=== PATIENT | male | born 1975 | race Caucasian/White ===

== ENCOUNTER 2018-08-16 18:33 | Emergency (ER) | payer SELFPAY ==
--- NOTE | 2018-08-16 19:01 | ERPHSYRPT ---
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 Pt states, that the area on his right tigh is getting numb, and then it can get very painful. There is no change in leg movement, and the condition comes and goes. Method of Injury: unknown Quality: intermittent Severity of Pain-Max: mild Severity of Pain-Current: mild Lower Extremities Pain: hip: right Modifying Factors: Improves With: nothing Associated Symptoms: none Allergies/Adverse Reactions: BEE STING Allergy (Uncoded 05/08/15 01:32) Home Medications: No Reportable Medications [No Reported Medications] 05/08/15 [History] Hx Tetanus, Diphtheria Vaccination/Date Given: Yes Hx Influenza Vaccination/Date Given: No Hx Pneumococcal Vaccination/Date Given: No - Review of Systems Constitutional: No Fever, No Chills Eyes: No Symptoms Ears, Nose, & Throat: No Symptoms Skin: No Rash Neurological: Sensory Changes (Thigh numbness and tenderness on the R), No Dizziness, No Focal Weakness - Past Medical History Pertinent Past Medical History: No Neurological History: No Pertinent History ENT History: No Pertinent History Cardiac History: No Pertinent History Respiratory History: No Pertinent History Endocrine Medical History: No Pertinent History Musculoskeletal History: No Pertinent History GI Medical History: No Pertinent History History: No Pertinent History Psycho-Social History: No Pertinent History Male Reproductive Disorders: No Pertinent History Other Medical History: STICHES ABOVE LEFT EYE AND ON RIGHT HAND IN THE PAST - Past Surgical History Past Surgical History: No Neuro Surgical History: No Pertinent History Cardiac: No Pertinent History Respiratory: No Pertinent History Gastrointestinal: No Pertinent History Genitourinary: No Pertinent History Musculoskeletal: No Pertinent History Male Surgical History: No Pertinent History - Social History Smoking Status: Never smoker Exposure to second hand smoke: No Drug Use: none Patient Lives Alone: No - Nursing Vital Signs Nursing Vital Signs: Initial Vital Signs Temperature 97.9 F 08/16/18 18:40 Pulse Rate 71 08/16/18 18:40 Blood Pressure 134/101 08/16/18 18:40 O2 Sat by Pulse Oximetry 98 08/16/18 18:40 Pain Scale Pain Intensity 3 - Physical Exam General Appearance: alert Back Exam: normal inspection, No vertebral tenderness Legs Exam: right leg: other (numbness and tenderness), bilateral leg: non-tender , normal inspection, normal range of motion Neuro/Tendon Exam: normal motor functions SpO2: 98 - Course Nursing assessment & vital signs reviewed: Yes - Progress Progress: unchanged Progress Note: 08/16/18 19:01 Pt with signs and symptoms of Meralgia Paresthetica on the R thigh. Pt should f /u with his PCP and if needed, referral to Neurology. Discussed with : Alex Will see patient in: office Counseled pt/family regarding: need for follow-up - Departure Departure Disposition: Home Clinical Impression: Meralgia paresthetica of right side Condition: Stable Critical Care Time: No Referrals: OMAR LEONG [Primary Care Provider] - Additional Instructions: F/U with PCP for Meralgia Paresthetica on the R
[2018-08-16 19:09] VITALS: BP 143/88; PULSE 70; O2SAT 96
== END 2018-08-16 19:15 | disposition home or self-care (01) ==
LOC: ED 18:33
DX: G57.11 Meralgia paresthetica, right lower limb (principal)
CPT/HCPCS: 99283

== ENCOUNTER 2022-01-17 20:14 | Emergency (ER) | payer BC ==
[2022-01-17 20:22] VITALS: BP 168/114; PULSE 69; O2SAT 99
[2022-01-17] MEDS ORDERED: TYLENOL 325 MG PO ONE (20:37)
[2022-01-17] MEDS ORDERED: TYLENOL 325 MG ONE (20:40)
--- NOTE | 2022-01-17 20:45 | ERPHSYRPT ---
- History of Present Illness Time Seen by Provider: 01/17/22 20:27 Source: patient Exam Limitations: no limitations Patient Subjective Stated Complaint: was digging a hole and lost my balance and hit my head on the house Triage Nursing Assessment: pt ambulated into ER without diff, at bedside. Pt was digging a hole for a hat and cap sewer line and lost his balance, fell into the house hitting his head on the house. Pt denies any loss of consciousness. Pt denies any dizziness but c/o headache to the top of his head and behind his eyes. Pt denies any visual changed. Physician History: 46-year-old male presented in the ER after he was working on a hat and cap sewer line right next to his house, tripped, lost his balance and fell forward hitting his head against the wooden wall. Is complaining of mild to moderate headache going to his both eyes without any visual disturbance, numbness tingling or focal weakness. No dizziness or lightheadedness. Denies any chest pain palpitations or shortness of breath before or after the fall. Occurred: just prior to arrival Severity: mild Head Injury Location: parietal Method of Injury: fell Loss of Consciousness: no loss of consciousness Associated Symptoms: nausea, headaches Allergies/Adverse Reactions: BEE STING Allergy (Uncoded 01/17/22 20:28) Home Medications: Escitalopram Oxalate [Lexapro] 10 mg PO DAILY 01/17/22 [History] Estradiol Valerate [Delestrogen] 100 mg IM WEEKLY 01/17/22 [History] Spironolactone [Aldactone] 50 mg PO BID 01/17/22 [History] Hx Tetanus, Diphtheria Vaccination/Date Given: Yes Hx Influenza Vaccination/Date Given: No Hx Pneumococcal Vaccination/Date Given: No Immunizations Up to Date: Yes Travel Risk - International Travel Have you traveled outside of the country in past 3 weeks: No - Coronavirus Screening Are you exhibiting any of the following symptoms?: No Close contact with a COVID-19 positive Pt in past 14-21 Days: No - Vaccine Status Have you recieved a Covid-19 vaccination: No - Review of Systems Constitutional: No Symptoms Eyes: No Symptoms Ears, Nose, & Throat: No Symptoms Respiratory: No Symptoms Cardiac: No Symptoms Abdominal/Gastrointestinal: No Symptoms Genitourinary Symptoms: No Symptoms Musculoskeletal: No Symptoms Skin: No Symptoms Neurological: Headache Psychological: Anxiety, Depression Endocrine: No Symptoms Hematologic/Lymphatic: No Symptoms Immunological/Allergic: No Symptoms - Past Medical History Pertinent Past Medical History: Yes Neurological History: No Pertinent History ENT History: No Pertinent History Cardiac History: Hypertension Respiratory History: No Pertinent History Endocrine Medical History: No Pertinent History Musculoskeletal History: No Pertinent History GI Medical History: No Pertinent History History: No Pertinent History Psycho-Social History: No Pertinent History Male Reproductive Disorders: No Pertinent History Other Medical History: STICHES ABOVE LEFT EYE AND ON RIGHT HAND IN THE PAST - Past Surgical History Past Surgical History: Yes Neuro Surgical History: No Pertinent History Cardiac: No Pertinent History Respiratory: No Pertinent History Gastrointestinal: No Pertinent History Genitourinary: No Pertinent History Musculoskeletal: No Pertinent History Male Surgical History: No Pertinent History Other Surgical History: tumor removed off rt hand - Social History Smoking Status: Never smoker Exposure to second hand smoke: No Drug Use: none Patient Lives Alone: No - Nursing Vital Signs Nursing Vital Signs: Initial Vital Signs Temperature 97.2 F 01/17/22 20:21 Pulse Rate 69 01/17/22 20:21 Respiratory Rate 20 01/17/22 20:21 Blood Pressure 168/114 01/17/22 20:21 O2 Sat by Pulse Oximetry 99 01/17/22 20:21 Pain Scale Pain Intensity 6 - [place] Coma Score Best Eye Response (Nedra): (4) open spontaneously Best Verbal Response ([place]): (5) oriented Best Motor Response (Nedra): (6) obeys commands [place] Total: 15 - Physical Exam General Appearance: no apparent distress, alert Head Injury: no evidence of injury, tenderness (Minimal tenderness of the vertex) Eye Exam: bilateral eye: normal inspection, PERRL, EOMI ENT Exam: airway nml Neck Exam: supple, trachea midline, full range of motion, normal alignment, normal inspection Cardiovascular/Respiratory Exam: chest non-tender, normal breath sounds, regular rate/rhythm Back Exam: normal inspection, normal range of motion Extremity Exam: non-tender, normal range of motion Mental Status Exam: alert, oriented x 3, cooperative owner spa director Exam: normal hearing, normal speech, PERRL Coordination/Gait Exam: normal finger to nose, normal gait, normal cerebellar function DTR Exam: bicep (R): 2+, bicep (L): 2+, knee (R): 2+, knee (L): 2+ SpO2 Interpretation: normal SpO2: 99 O2 Delivery: Room Air Ordered Tests: Medication Summary Discontinued Medications Generic Name Dose Route Start Last Admin Trade Name Laura PRN Reason Stop Dose Admin Acetaminophen 975 mg 01/17/22 20:37 01/17/22 20:41 Acetaminophen 325 Mg Tablet PO 01/17/22 20:38 975 mg STAT ONE Administration Acetaminophen Confirm 01/17/22 20:40 Acetaminophen 325 Mg Tablet Administered 01/17/22 20:41 Dose 975 mg .ROUTE .STK-MED ONE - Progress Progress: improved Progress Note: 01/17/22 21:48 Patient has nonfocal neuro exam throughout stay in the ER. Patient was standing and stumbled and hit his head against a wooden wall. Mechanism of injury/force is not severe enough to cause internal injury. No obvious swelling but has minimal tenderness in the vertex area. Given Tylenol, feeling better on reevaluation. Do not think needs CT imaging, recommended taking Tylenol, frequent neurochecks and outpatient follow-up. Discussed signs symptoms of worsening needing return to ER which he seems understanding. Counseled pt/family regarding: diagnosis, need for follow-up - Departure Departure Disposition: Home Clinical Impression: Scalp contusion, Fall Condition: Stable Critical Care Time: No Referrals: ISABEL CALZADA [Primary Care Provider] - Follow Up with PCP/3 days Instructions: Closed Head Injury (DC), Concussion, Adult (DC) Additional Instructions: Take Tylenol as needed. Do not take ibuprofen for next 36 hours. Stay with responsible person with frequent neurochecks. Follow head injury instructions and return to ER for any worsening.
== END 2022-01-17 22:09 | disposition home or self-care (01) ==
LOC: ED 20:14
DX: S00.03XA Contusion of scalp, initial encounter (principal); W18.49XA Other slipping, tripping and stumbling without falling, initial encounter; W22.01XA Walked into wall, initial encounter; Y93.H1 Activity, digging, shoveling and raking; Y92.007 Garden or yard of unspecified non-institutional (private) residence as the place of occurrence of the external cause; R51.9 Headache, unspecified; I10 Essential (primary) hypertension; Z79.899 Other long term (current) drug therapy; Z28.310 Unvaccinated for COVID-19
CPT/HCPCS: 99281; A9270-GY

== ENCOUNTER 2023-09-03 23:10 | Emergency (ER) | payer BC ==
[2023-09-03 23:20] VITALS: TEMP 97.7
[2023-09-03] MEDS ORDERED: XYLOCAINE 1% HCL 20 ML MDV ONE (23:30)
[2023-09-03] MEDS ORDERED: Adacel Vial IM ONE (23:49)
[2023-09-03] MEDS: Adacel Vial IM ONE (23:50)
[2023-09-03] MEDS: XYLOCAINE 1% HCL 20 ML MDV IJ ONE (23:51)
--- NOTE | 2023-09-03 23:53 | ERPHSYRPT ---
- History of Present Illness Time Seen by Provider: 09/03/23 23:47 Source: patient Exam Limitations: no limitations Patient Subjective Stated Complaint: pt states that he was getting out of the truck and cut his toe Triage Nursing Assessment: pt ambulated into the er; pt is axo x4; c/o rt foot injury; laceration present to left fifth digit; laceration measures 1 cm x 0.2 cm; minimal bleeding present; strong left pedal pulse; good cap refill; skin PDW; no respiratory distress present; hypertension Physician History: 47-year-old presented in the ER with a laceration left little toe when he stepped on something in the yard with barefoot. There was bleeding initially but stopped with applying pressure. Complaining of minimal pain. No injury anywhere else. Unsure about tetanus status. 1.25 cm laceration left little toe palmar aspect with minimal oozing. Intact movements at the metacarpophalangeal and interphalangeal joints. Distal neurovascular intact. Laceration is repaired. Tetanus is updated. Recommended Tylenol/ibuprofen as needed. Outpatient follow-up recommended. Allergies/Adverse Reactions: BEE STING Allergy (Uncoded 09/03/23 23:13) Home Medications: Escitalopram Oxalate [Lexapro] 10 mg PO DAILY 01/17/22 [History] Estradiol Valerate [Delestrogen] 100 mg IM WEEKLY 01/17/22 [History] Spironolactone [Aldactone] 50 mg PO BID 01/17/22 [History] Hx Tetanus, Diphtheria Vaccination/Date Given: No (unsure) Hx Influenza Vaccination/Date Given: No Hx Pneumococcal Vaccination/Date Given: No Travel Risk - International Travel Have you traveled outside of the country in past 3 weeks: No - Emerging Infectious Disease Are you exhibiting symptoms associated with any current EIDs: No - Review of Systems Constitutional: No Symptoms Ears, Nose, & Throat: No Symptoms Respiratory: No Symptoms Cardiac: No Symptoms Abdominal/Gastrointestinal: No Symptoms Musculoskeletal: Injury Skin: Skin Lesions Endocrine: No Symptoms Hematologic/Lymphatic: No Symptoms - Past Medical History Pertinent Past Medical History: Yes Neurological History: No Pertinent History ENT History: No Pertinent History Cardiac History: Hypertension Respiratory History: No Pertinent History Endocrine Medical History: No Pertinent History Musculoskeletal History: No Pertinent History GI Medical History: No Pertinent History History: No Pertinent History Psycho-Social History: No Pertinent History Male Reproductive Disorders: No Pertinent History Other Medical History: STICHES ABOVE LEFT EYE AND ON RIGHT HAND IN THE PAST - Past Surgical History Past Surgical History: Yes Neuro Surgical History: No Pertinent History Cardiac: No Pertinent History Respiratory: No Pertinent History Gastrointestinal: No Pertinent History Genitourinary: No Pertinent History Musculoskeletal: No Pertinent History Male Surgical History: No Pertinent History Other Surgical History: tumor removed off rt hand - Social History Smoking Status: Never smoker Exposure to second hand smoke: No Drug Use: none Patient Lives Alone: No - Social Determinants of Health Will the patient participate in the screening: Yes Do you worry about a steady place to live?: No Do you have any problems with any of the following?: No known problems In the past 12 months,have you had to go without utilities?: No Transportation Issues: No Has anyone in your support network made you feel unsafe?: No Have you or anyone in your house had to go without enough: No - Nursing Vital Signs Nursing Vital Signs: Initial Vital Signs Temperature 97.7 F 09/03/23 23:14 Pulse Rate 63 09/03/23 23:14 Respiratory Rate 20 09/03/23 23:14 Blood Pressure 157/91 09/03/23 23:14 O2 Sat by Pulse Oximetry 98 09/03/23 23:14 Pain Scale Pain Intensity 1 - Physical Exam General Appearance: no apparent distress Neck Exam: normal inspection, full range of motion Cardiovascular/Respiratory Exam: normal breath sounds, regular rate/rhythm Foot Exam: left foot: soft tissue tenderness (1.2 cm laceration palmar aspect of fifth little toe. No osseous tenderness.) Neuro/Tendon Exam: normal sensation, normal motor functions, normal tendon functions Mental Status Exam: alert, oriented x 3, cooperative Skin Exam: normal color SpO2 Interpretation: normal SpO2: 98 O2 Delivery: Room Air Procedures - Laceration/Wound Repair Left Toe Time of Procedure: 23:51 Wound Location: Left, foot (5th toe ) Wound Length (cm): 1.25 Wound's Depth, Shape: superficial, linear Wound Explored: clean Irrigated: Yes Hibiclens Prep: Yes Anesthesia: 1% Lidocaine Volume Anesthetic (ccs): 3 Wound Repaired With: sutures Suture Size/Type: 4-0, ethilon Number of Sutures: 3 Layer Closure?: No Sterile Dressing Applied?: Yes Ordered Tests: Medication Summary Discontinued Medications Generic Name Dose Route Start Last Admin Trade Name Freq PRN Reason Stop Dose Admin Diphtheria/Tetanus/Acell Pertussis 0.5 ml 09/03/23 23:47 09/03/23 23:50 Tdap --Diph,Pertuss(Acell),Tet Vac/Pf 0.5 Ml Vial IM 09/03/23 23:48 0.5 ml .ONCE ONE Administration Diphtheria/Tetanus/Acell Pertussis Confirm 09/03/23 23:49 Tdap --Diph,Pertuss(Acell),Tet Vac/Pf 0.5 Ml Vial Administered 09/03/23 23:50 Dose 0.5 ml IM .STK-MED ONE Lidocaine HCl Confirm 09/03/23 23:30 Lidocaine Hcl 1% 20 Ml Mdv 20 Ml Ml Administered 09/03/23 23:31 Dose 1 ml .ROUTE .STK-MED ONE Lidocaine HCl 5 ml 09/03/23 23:49 09/03/23 23:51 Lidocaine Hcl 1% 20 Ml Mdv 20 Ml Ml IJ 09/03/23 23:50 5 ml STAT ONE Administration - Progress Progress: improved Progress Note: 09/03/23 23:51 47-year-old presented in the ER with a laceration left little toe when he stepped on something in the yard with barefoot. There was bleeding initially but stopped with applying pressure. Complaining of minimal pain. No injury anywhere else. Unsure about tetanus status. 1.25 cm laceration left little toe palmar aspect with minimal oozing. Intact movements at the metacarpophalangeal and interphalangeal joints. Distal neurovascular intact. Laceration is repaired. Tetanus is updated. Do not think needs imaging as it is a superficial wound. No bony tenderness. Recommended Tylenol/ibuprofen as needed. Outpatient follow-up recommended. 09/03/23 23:55 Counseled pt/family regarding: diagnosis, need for follow-up Medical Desision Making - Risk of complications The pt has a mod risk of morbidity or mortality based on: Need for prescription drug management, Need for minor surgical intervention in patient with know risk factors - Departure Departure Disposition: Home Clinical Impression: Toe laceration Condition: Stable Critical Care Time: No Referrals: ISABEL CALZADA [Primary Care Provider] - Follow up with PCP 1 day Instructions: Toe Injury (DC), Laceration Repair With Stitches ED Additional Instructions: Take Tylenol/ibuprofen as needed. Intermittent ice application. Avoid exertional activities. Follow-up with primary care for reevaluation and suture removal in 2 weeks. Return to ER for increasing pain swelling redness discharge/fever chills etc.
[2023-09-04 00:07] VITALS: BP 135/88; PULSE 74; RESP 18
[2023-09-04 00:10] VITALS: O2SAT 98
== END 2023-09-04 00:06 | disposition home or self-care (01) ==
LOC: ED 23:10
DX: S91.115A Laceration without foreign body of left lesser toe(s) without damage to nail, initial encounter (principal); W22.8XXA Striking against or struck by other objects, initial encounter; Y92.007 Garden or yard of unspecified non-institutional (private) residence as the place of occurrence of the external cause; I10 Essential (primary) hypertension; Z79.899 Other long term (current) drug therapy; Z23 Encounter for immunization
CPT/HCPCS: 12001; 90471; 90715; 96372; 99283; 99291